=== PATIENT | male | born 1945 | race Two or more races ===

== ENCOUNTER 2021-01-31 10:30 | Inpatient (IN) | payer OTHER ==
[~2021-01-31] VITALS: Ht 180.3 cm; Wt 68.0 kg
[2021-01-31] MEDS ORDERED: [UNRECOGNIZED DRUG - OTHER] PO (11:14)
[2021-01-31] MEDS ORDERED: FOLIC ACID PO (11:14)
[2021-01-31] MEDS ORDERED: VITAMIN C PO (11:15)
[2021-01-31] MEDS ORDERED: COZAAR25 MG PO (11:15)
[2021-01-31] MEDS ORDERED: [UNRECOGNIZED DRUG - OTHER] PO (11:16)
[2021-01-31] MEDS ORDERED: PREDNISONE PO (11:16)
[2021-01-31] MEDS ORDERED: FLUOXE PO (11:17)
[2021-02-06] MEDS ORDERED: RAYOS5 MG (07:48)
[2021-02-06] MEDS ORDERED: LEFLUNOMIDE20 MG (07:48)
[2021-02-06] MEDS ORDERED: SULINDAC200 MG (07:48)
[2021-02-06] MEDS ORDERED: FLUOXETINE HCL10 MG (07:48)
[2021-02-06] MEDS ORDERED: FAMOTIDINE20 MG (07:49)
[2021-02-06] MEDS ORDERED: ATORVASTATIN CA10 MG (07:49)
[2021-02-06] MEDS ORDERED: FOLIC ACID1 MG (07:49)
[2021-02-06] MEDS ORDERED: VITAMIN C100 MG PO (07:50)
[2021-02-08] MEDS ORDERED: INTESTINEX680 M1 PO (08:24)
[2021-02-08] MEDS ORDERED: ULTRACET PO (08:24)
[2021-02-08] MEDS ORDERED: PROTONIX40 MG PO (08:24)
[2021-02-08] MEDS ORDERED: HYOSCYAMINE0.125 M1 SL (08:24)
== END 2021-02-08 13:23 | disposition home or self-care (01) | DRG 331 ==
LOC: SURH 02-06 05:28 → O/R 02-06 05:28 → SURH 02-06 07:00
PROVIDERS: ADMIT Surgery; ATTEND Surgery
PROC: 0DTN4ZZ Resection of Sigmoid Colon, Percutaneous Endoscopic Approach (ICD-10-PCS; 2021-02-06)
PROC: 0DJD8ZZ Inspection of Lower Intestinal Tract, Via Natural or Artificial Opening Endoscopic (ICD-10-PCS; 2021-02-06)
PROC: 3E0F7SF Introduction of Other Gas into Respiratory Tract, Via Natural or Artificial Opening (ICD-10-PCS; 2021-02-06)
PROC: 0DTP4ZZ Resection of Rectum, Percutaneous Endoscopic Approach (ICD-10-PCS; principal; 2021-02-06 07:00)
DX: K57.31 Diverticulosis of large intestine without perforation or abscess with bleeding (principal); K57.32 Diverticulitis of large intestine without perforation or abscess without bleeding; E11.9 Type 2 diabetes mellitus without complications; I11.9 Hypertensive heart disease without heart failure; F32.9 Major depressive disorder, single episode, unspecified; M06.9 Rheumatoid arthritis, unspecified; Z79.52 Long term (current) use of systemic steroids